=== PATIENT | male | born 1965 | race Caucasian/White ===

== ENCOUNTER → 2024-02-21 13:51 | Outpatient (REF) | payer OTHER, SELFPAY ==
--- NOTE | 2024-02-21 13:59 | CA_ITS ---
Transthoracic Echocardiogram Patient (Last, First, Middle): John Galindo, Gender: Male Date of : 1965 Age: 59 Procedure Date: 02/21/2024 Procedure Type: Transthoracic Echocardiogram Location: OP Height: 190.5 cm Weight: 127.01 kg BSA: 2.53 m2 Heart Rate: 53 bpm BP: 120 / 85 mmHg Tool Salvage Worker: [email or web address] Referring MD: LIANE STRONG Brick Setter: Ethan Villanueva MD Symptoms: I25.5 ISCHEMIC CMP Study Quality: Fair w/Contrast ECG Rhythm: Sinus with extra beats Conclusions: - 1. Moderately dilated left ventricle with [id number] LV systolic dysfunction with LVEF of 40-45% with regional wall motion abnormality consistent with ischemic cardiomyopathy with impaired relaxation filling pattern 2. Mildly dilated left atrium 3. Mild mitral regurgitation due to tethering of posterior mitral leaflet 4. No gross pericardial effusion Findings Procedure Information Contrast agent, definity, is being given per protocol without apparent complications. Left Ventricle Moderately increased left ventricular cavity size. There is normal left ventricular wall thickness. The left ventricular systolic function is mild to moderately decreased. The visually estimated ejection fraction is between 40-45%. Spectral Doppler is indicative of an impaired relaxation filling pattern. E/E prime ratio is between 8 and 15 consistent with indeterminate filling pressures. Wall Motion Rest Echo Findings The inferoseptal wall, inferior wall, inferolateral wall, and apical septum segment are akinetic. All other scored wall segments showed normal motion. Right Ventricle Normal right ventricular cavity size and systolic function. Atria The left atrium is mildly dilated. There is no evidence of interatrial shunt. The right atrium is likely dilated. Aortic Valve Normal aortic valve structure and function. There is no aortic valve stenosis. There is no aortic valve regurgitation. Mitral Valve There is mild anterior and posterior mitral leaflet thickening. The posterior mitral leaflet has restricted mobility. There is mild mitral valve regurgitation. There is no mitral valve stenosis. Pulmonic Valve The pulmonic valve is likely normal. There is trace pulmonic valve regurgitation. Tricuspid Valve Likely normal tricuspid valve structure and function. Tricuspid regurgitation envelope is inadequate for calculation of right ventricular systolic pressure. Normal right atrial pressure. Great Vessels All visible segments of the aorta are normal in size. The pulmonary artery was not well visualized. There is no dilatation of the ascending aorta measuring 3.50 cm. Small plaque is seen in the sino tubular ridge. Venous The inferior vena cava is normal in size and collapses greater than 50% with inspiration. Pericardium/Pleural There is no evidence of pericardial effusion. Prior Study Comparison No prior study available for comparison. Measurements 2D Linear Measurements IVSd: 1.02 0.6-0.9/0.6-1.0 cm LVIDd: 6.62 3.9-5.3/4.2-5.9 cm LVIDd Index: 2.62 2.4-3.2/2.2-3.1 cm/m2 LVIDs: 4.46 2.0-3.6 cm LVPWd: 1.05 0.7-1.1 cm LA Diam: 4.70 2.7-3.8/3.0-4.0 cm LAIDs Index: 1.86 1.5-2.3 cm/m2 LV Mass: 380.76 67-162/88-224 g LV Mass Index: 150.50 43-95/49-115 g/m2 LVOT Diam: 2.50 3.0+(-)1.3 cm 2D Systolic Function EF 4C: 54.80 >55% EF 2C: 38.40 >55% EF BiP: 45.30 >55% Mitral Valve MV Pk E: 0.95 MV PK A: 0.56 MV Decel Time: 272.00 E/A: 1.70 E'Lateral: 11.80 E'Medial: 7.83 E/E' Med: 12.10 E/E' Lat: 8.10 PHT: 80.00 MVA PHT: 2.75 Decel [place]: 3.49 Aortic Valve AoV Pk Jose: 1.14 AoV Mn Jose: 0.86 AoV VTI: 0.26 AoV Pk Grad: 5.00 Aov Mn Grad: 3.00 KAY Cont.VTI: 4.31 LVOT LVOT Pk Jose: 0.89 LVOT Mn Jose: 0.67 LVOT VTI: 0.23 LVOT Pk Grad: 3.00 LVOT Mn Grad: 2.00 LVOT Diam: 2.50 LVOT Area: 4.91 Diastolic Function MV Pk E: 0.95 MV Pk A: 0.56 E/A: 1.70 E'Medial: 7.83 E/E' Med: 12.10 E' Laterial: 11.80 E/E' Lat: 8.10 Right Ventricle TAPSE (mm): 27.03 TVS' Jose: 11.90 Tricuspid Valve TR Pk Jose: 1.58 TR Pk Grad: 10.00 Great Vessels Aorta Sinus of Valsalva: 3.80 2.0-3.5 cm Ao Asc: 3.50 2.1-3.4 cm Pulmonary Valve PV Pk Jose: 0.93 Peak PV Grad: 3.00 Updated in Other Vendor System with Status of Final Ethan Villanueva MD electronically signed on 02/21/2024 5:26:42 PM with status of Final
== END ==
LOC: HO.CARD 13:51
PROVIDERS: Visit Provider Internal Medicine
DX: I25.5 Ischemic cardiomyopathy (principal)
CPT/HCPCS: 93306; Q9957

== ENCOUNTER → 2024-02-21 13:59 | Outpatient (BNV) | payer OTHER, SELFPAY | PROVIDERS: Visit Provider Internal Medicine Cardiovascular Disease | DX: I34.0 Nonrheumatic mitral (valve) insufficiency (principal); I25.5 Ischemic cardiomyopathy; R93.1 Abnormal findings on diagnostic imaging of heart and coronary circulation | CPT/HCPCS: 93306 ==